=== PATIENT | male | born 1960 | race Hispanic/Latino ===

== ENCOUNTER 2017-12-13 21:34 | Emergency (ER) | payer OTHER ==
[2017-12-13 22:10] LABS: Hemoglobin 15.4 g/dL (14.0-18.0); Mean Corpuscular Hemoglobin 30.1 pg (27.0-31.0); Mean Corpuscular Volume 91.1 fl (80.0-94.0); Mean Platelet Volume 7.3 fL (7.4-10.4); Platelet Count 277 thou/uL (130-400); RBC Distribution Width 12.2 % (11.5-14.5); Red Blood Cell (RBC) Count 5.12 mill/uL (4.70-6.10)
[2017-12-13 22:19] LABS: Band 3 % (5-11); Eosinophils 2 % (0-10); Lymphocytes 41 % (21-51); MDiff Complete? YES; Monocytes 14 % (0-10); Neutrophil 39 % (42-75)
[2017-12-13 22:24] LABS: ALT (SGPT) 31 U/L (8-55); AST (SGOT) 25 U/L (5-34); Albumin 4.5 g/dL (3.5-5.0); Alkaline Phosphatase 151 U/L (40-150); Anion Gap 15 mmol/L (10-20); BUN (Urea Nitrogen) 13 mg/dL (8.4-25.7); Bilirubin, Total 0.6 mg/dL (0.2-1.2); Calc. Creatinine Clearance 0 mL/min (70-130); Calcium 10.6 mg/dL (7.8-10.44); Carbon Dioxide 29 mmol/L (22-29); Chloride 99 mmol/L (98-107); Estimated GFR-MDRD 85; Globulin 2.7 g/dL (2.4-3.5); Glucose 93 mg/dL (70-105); Potassium 3.6 mmol/L (3.5-5.1); Protein, Total 7.2 g/dL (6.0-8.3); Sodium 139 mmol/L (136-145)
[2017-12-13 22:28] LABS: CKMB 1.1 ng/mL (0-6.6); Troponin I Less than 0.010 ng/mL (< 0.028)
--- NOTE | 2017-12-13 22:28 | RAD ---
PORTABLE AP CHEST X-RAY 12/13/17 HISTORY: Chest pain which started today. COMPARISON: 03/12/14. FINDINGS: The left lateral costophrenic angle is excluded from view. The lung are otherwise clear. The cardiac silhouette and pulmonary vasculature are within normal limits. There is suggestion of lucencies withi n the upper lungs which could be related to emphysematous changes. The cardiac silhouette and pulmona ry vasculature are within normal limits and there has been no interval change from prior exam. IMPRESSION: Stable chest without evidence of an acute cardiopulmonary process. POS: [facility]
== END 2017-12-13 23:15 | disposition home or self-care (01) ==
LOC: ERS 21:34
DX: R07.89 Other chest pain (principal); I10 Essential (primary) hypertension; Z79.82 Long term (current) use of aspirin; Z79.899 Other long term (current) drug therapy
CPT/HCPCS: 71045; 80053; 82553; 84484; 85025; 93005

== ENCOUNTER 2018-06-12 10:34 | Emergency (ER) | payer OTHER, SELFPAY ==
[2018-06-12 11:33] LABS: Bilirubin Small (Negative); Blood, Urine Small (Negative); Clarity CLEAR (Clear); Glucose, Urine (Dipstick) Negative (Negative); Leukocyte Small (Negative); Nitrite Negative (Negative); Protein, Urine (Dipstick) > or equal to 300 mg/dL (Neg-Trace); Specific Gravity, Urine 1.027 (1.002-1.036)
[2018-06-12 11:36] LABS: Bacteria/HPF None Seen HPF (None Seen); Squamous Epithelial 0-3 HPF (0-3)
[2018-06-12 11:38] LABS: Pathc Cast-AUWi Flag 7.85 (0-2.49)
[2018-06-12] MEDS ORDERED: Simethicone Chewable 80 MG TAB PO SCH (11:45)
[2018-06-12 11:54] LABS: Hemoglobin 16.4 g/dL (14.0-18.0); Mean Corpuscular HGB CONC 33.6 g/dL (32.0-36.0); Mean Corpuscular Volume 95.1 fL (78.0-98.0); Mean Platelet Volume 10.1 fL (7.4-10.4); Platelet Count 86 thou/uL (130-400); Red Blood Cell (RBC) Count 5.14 mill/uL (4.70-6.10); White Blood Cell (WBC) Count 5.4 thou/uL (4.8-10.8)
[2018-06-12 11:54] LABS: Hyaline Casts/LPF 7-10 HYALINE CAST LPF (0-3 Hyaline)
[2018-06-12 11:55] LABS: ALT (SGPT) 90 U/L (8-55); AST (SGOT) 114 U/L (5-34); Albumin 2.4 g/dL (3.5-5.0); Alkaline Phosphatase 242 U/L (40-150); Anion Gap 9 mmol/L (10-20); BUN (Urea Nitrogen) 22 mg/dL (8.4-25.7); Bilirubin, Total 1.3 mg/dL (0.2-1.2); Calc. Creatinine Clearance 0 mL/min (70-130); Calcium 8.2 mg/dL (7.8-10.44); Carbon Dioxide 19 mmol/L (22-29); Chloride 114 mmol/L (98-107); Estimated GFR-MDRD 69; Globulin 3.5 g/dL (2.4-3.5); Glucose 112 mg/dL (70-105); Lipase 98 U/L (8-78); Potassium 3.9 mmol/L (3.5-5.1); Protein, Total 5.9 g/dL (6.0-8.3); Sodium 138 mmol/L (136-145)
[2018-06-12 12:07] LABS: CKMB 1.8 ng/mL (0-6.6); Troponin I 0.015 ng/mL (< 0.028)
[2018-06-12] MEDS ORDERED: Pantoprazole 40 MG VIAL ONE (12:07)
[2018-06-12 12:11] LABS: #Eosinphils 0.1 thou/uL (0.0-0.7); #Monocytes 0.4 thou/uL (0.11-0.59); %Basophils 0.6 % (0.0-1.0); %Eosinophils 1.1 % (0.0-10.0); %Lymphocytes 18.3 % (21.0-51.0); %Monocytes 8.4 % (0.0-10.0); %Neutrophils 73.1 % (42.0-75.0); PLT Morphology Comment Appears Decreased; RBC Morphology Normal
[2018-06-12] MEDS ORDERED: ISOVUE-370 76%-LOCM 1 ML ONE (12:31)
--- NOTE | 2018-06-12 12:34 | CT ---
CT ABDOMEN AND PELVIS WITH CONTRAST: INDICATIONS: Abdominal distention. TECHNIQUE: Multiple axial tomograms obtained through the abdomen and pelvis with IV enhancement. FINDINGS: Images through the lung bases show small bilateral pleural effusions. Images of the abdomen and pelvis show moderate volume ascites in all quadrants and within the deep pe lvis. The liver is somewhat small. Margins are somewhat irregular, suggesting cirrhosis. Recommend clinic al correlation. The spleen is mildly enlarged. The pancreas is unremarkable. The adrenal glands are unremarkable. The kidneys show equal function. There is a 3 to 4 mm calculus in the upper pole collecting structur es of the left kidney, and there is a 3 to 4 mm calculus in the mid pole collecting structures of the left kidney. There is a 2 mm calculus in the lower pole left kidney. No evidence of right renal ca lculus. No hydronephrosis. The urinary bladder is not well distended. The prostate is upper normal . The small bowel loops show diffuse mural thickening. This may be secondary to the ascites; however, other small bowel etiologies are not excluded. There is no dilatation and no evidence of obstruction . The colon is nondistended and not well evaluated on this study. The aorta is of normal caliber. No adenopathy. IMPRESSION: 1. Small bilateral pleural effusions. 2. Moderate volume ascites. 3. The liver is small with mildly irregular borders. Correlate for cirrhosis. 4. Borderline splenomegaly. 5. Nonobstructing calculi in the upper collecting structures of the left kidney. 6. Diffuse small bowel wall thickening. This may be on the basis of ascites; however, other small b owel enteropathy cannot be excluded radiographically. POS: [facility]
== END 2018-06-12 12:40 | disposition home or self-care (01) ==
LOC: ERS 10:34
DX: R18.8 Other ascites (principal); I10 Essential (primary) hypertension; Z79.899 Other long term (current) drug therapy; Z79.82 Long term (current) use of aspirin
CPT/HCPCS: 74177; 80053; 81003; 81015; 82553; 83690; 84484; 85025; 93005; 96361; 96374; C9113

== ENCOUNTER 2018-06-18 07:43 | Day surgery (SDC) | payer OTHER ==
[2018-06-18 08:05] LABS: #Eosinphils 0.1 thou/uL (0.0-0.7); #Lymphocytes 1.2 thou/uL (1.20-3.40); #Monocytes 0.4 thou/uL (0.11-0.59); #Neutrophils 3.2 thou/uL (1.40-6.50); %Basophils 0.5 % (0.0-1.0); %Eosinophils 2.4 % (0.0-10.0); %Lymphocytes 23.7 % (21.0-51.0); %Monocytes 8.6 % (0.0-10.0); %Neutrophils 64.8 % (42.0-75.0); Hemoglobin 16.4 g/dL (14.0-18.0); Mean Corpuscular HGB CONC 33.5 g/dL (32.0-36.0); Mean Corpuscular Hemoglobin 31.4 pg (27.0-31.0); Mean Corpuscular Volume 93.8 fL (78.0-98.0); Mean Platelet Volume 9.2 fL (7.4-10.4); Platelet Count 97 thou/uL (130-400); RBC Distribution Width 11.8 % (11.5-14.5); Red Blood Cell (RBC) Count 5.23 mill/uL (4.70-6.10); White Blood Cell (WBC) Count 4.9 thou/uL (4.8-10.8)
[2018-06-18 08:07] LABS: Prothrombin Time 13.1 SEC (12.0-14.7)
[2018-06-18 08:12] LABS: PTT 32.3 SEC (22.9-36.1)
--- NOTE | 2018-06-18 12:16 | ULT ---
ULTRASOUND GUIDED PARACENTESIS: Date: 06/18/18 HISTORY: Newly diagnosed cirrhosis and ascites. TECHNIQUE: The procedure, including risks and complications were explained to the patient and informed consent o btained. Limited sonographic evaluation of the abdomen was performed and only a very small amount of intraperitoneal free fluid was demonstrated, with largest pocket seen in the right upper quadrant. An area was marked and then meticulously prepped and draped in the usual sterile fashion. Skin and subcutaneous tissues were infiltrated with buffered 1% lidocaine for local anesthesia at the intended puncture site. Small skin incision was made. Utilizing concurrent real-time ultrasound guidance, a 19 gauge [employer] needle with 5 [place] sheath was a dvanced into the abdomen. After the return of fluid, the needle was removed, and the catheter was adv anced. Approximately 300 mL of clear, straw-colored fluid was aspirated. However, given multiple consuelo cent loops of bowel, no additional fluid was able to be aspirated at this site. As a result, the cath eter was removed, and hemostasis was achieved with direct pressure. A dry, sterile dressing was place d at catheter entry site. The patient tolerated the procedure well and without immediate complication. The patient was transpor cole to radiology nurse's holding area for further monitoring prior to discharge. IMPRESSION: 1. Technically successful ultrasound guided paracentesis with aspiration of 300 mL of clear, straw-c olored fluid. 2. Small amount of ascites. POS: [facility]
[2018-06-18 13:03] LABS: BF Color Yellow; BF RBC Count - Manual 12 /cumm; BF WBC/Nonhematics Ct. - Manua 168 /cumm; Body Fluid Source PARACENTESIS FLD; Clarity Hazy (Clear); Tube # EDTA
[2018-06-18 13:08] LABS: BF Segmented Neutrophils 6 %; Cell Count Non Hematic 84 %; Lymphocytes 10 %
[2018-06-18 14:15] VITALS: BMI 28.5
[2018-06-18 14:16] VITALS: BP 175/98; TEMP 97.7
== END 2018-06-18 09:50 | disposition home or self-care (01) ==
LOC: ULT 07:43
PROVIDERS: ATTEND Internal Medicine
PROC: 0W9G3ZZ Drainage of Peritoneal Cavity, Percutaneous Approach (ICD-10-PCS; principal; 2018-06-18)
DX: R18.8 Other ascites (principal); K21.9 Gastro-esophageal reflux disease without esophagitis; K62.5 Hemorrhage of anus and rectum
CPT/HCPCS: 36415; 49083; 82042; 84157; 85025; 85060; 85610; 85730; 87070; 87205; 88112; 89051